=== PATIENT | female | born 2000 | race American Indian/Alaskan Native ===

== ENCOUNTER 2021-01-28 12:53 | Outpatient (CLI) | payer OTHER ==
[2021-01-28 16:08] LABS: Bilirubin,Urine NEG (Negative); Blood,Urine NEG (Negative); Color,Urine Yellow (Yellow); Mucus,Urine FEW /HPF; Protein,Urine <15 mg/dL mg/dL (Negative); RBC,Urine < 1.0 /HPF (0.0-6.0)
[2021-01-28] MEDS ORDERED: ACETAMINOPHEN 325 MG TAB PO ONE (16:24)
[2021-01-28] MEDS ORDERED: ACETAMINOPHEN 500 MG TAB PO ONE (17:00)
== END 2021-01-28 16:50 | disposition home or self-care (01) ==
LOC: TRG 12:53 → APU 12:53 → TRG 16:50
PROVIDERS: ATTEND Obstetrics & Gynecology
DX: Z34.92 Encounter for supervision of normal pregnancy, unspecified, second trimester (principal); Z3A.23 23 weeks gestation of pregnancy
CPT/HCPCS: 59025; 81001

== ENCOUNTER 2021-05-12 06:19 | Outpatient (CLI) | payer OTHER ==
[2021-05-12 06:38] VITALS: BP 125/86
== END 2021-05-12 08:37 | disposition home or self-care (01) ==
LOC: TRG 06:19 → APU 06:20 → TRG 08:37
PROVIDERS: ATTEND Obstetrics & Gynecology
DX: Z34.93 Encounter for supervision of normal pregnancy, unspecified, third trimester (principal); Z3A.38 38 weeks gestation of pregnancy
CPT/HCPCS: 59025; Q0177

== ENCOUNTER 2021-05-13 11:33 | Inpatient (IN) | payer OTHER ==
--- NOTE | 2021-05-13 13:46 | History and Physical Report ---
History of Present Illness Date of examination: 05/13/21 Date of admission: 05/13/2021 Chief complaint: "I was sent here from the office" History of present illness: EDC Confirmation: 05/24/2021 Past History : 2 Term Births: 0 Premature Births: 0 Living Children: 0 Para: 0 Mult. Births: 0 Prev : 0 Aborta: 1 Elect. Ab: 0 Spont. Ab: 1 Ectopics: 0 # 1 Delivery date: 06/2020 Weeks Gestation: 5 Delivery type: SAB [place] [facility] [place]: No D&C Past Medical History: Negative Past Medical History Past Surgical History: Negative Past Surgical History Family History Summary: Other Family Member - Has No Family History of Ovarvian Cancer - Entered On: 12/08/2020 Other Family Member - Has No Family History of Colon Cancer - Entered On: 12/08/2020 Other Family Member - Has No Family History of Breast Cancer - Entered On: 12/08/2020 Social History: Marital Status: Single Children: 0 Occupation: Visual Associate at [employer] Smoking History: Patient has never smoked. Risk Factors: Smoked Tobacco Use: Never smoker Smokeless Tobacco Use: Never Passive smoke exposure: no Drug use: no HIV high-risk behavior: no Caffeine use: 0 drinks per day Alcohol use: no Exercise: yes Times per week: 3 Seatbelt use: 100 % Dietary Counseling: pn yes Past Medical History Surgery (Non-cold reduction roller): Negative Past Surgical History Abnormal PAP: negative Uterine Anomaly: negative Social Hx: Marital Status: Single Children: 0 Occupation: [employer] at [employer] Smoking History: Patient has never smoked. Infection History Hx of STD: none HIV Risk Eval: no Hepatitis B Risk Eval: low risk Personal hx. of genital herpes: no Genetic History Congenital Heart Defect: Mom: no Dad: no Owen Disease: Mom: no Dad: no Thalassemia Mom: no Dad: no Neural Tube Defect Mom: no Dad: no Down's Syndrome Mom: no Dad: no Loc-Sachs Mom: no Dad: no Sickle Cell Disease/Trait Mom: no Dad: no Hemophilia Mom: no Dad: no Muscular Dystrophy Mom: no Dad: no Cystic Fibrosis Mom: no Dad: no Ravin Chorea Mom: no Dad: no Mental Retardation Mom: no Dad: no Fragile X Mom: no Dad: no Other Genetic/Chromosomal Disorder Mom: no Dad: no Child w/other defect Mom: no Dad: no Active Medications: None Current Allergies: No known allergies Past History Past Medical History: no pertinent history (see HPI) Past Surgical History: no surgical history (SEE HPI) ASSOCIATE ART DIRECTOR History: chlamydia Family/Genetic History: none (SEE HPI) Social history: no significant social history (SEE HPI) - Obstetrical History Expected Date of Delivery: 05/24/21 Actual Gestation: 38 Week(s) 3 Day(s) : 2 Para: 0 Hx # Term Pregnancies: 0 Number of Pregnancies: 0 Spontaneous Abortions: 1 Induced : 0 Number of Living Children: 0 Medications and Allergies Allergies Allergy/AdvReac Type Severity Reaction Status Date / Time No Known Allergies Allergy Unverified 01/28/21 15:06 Review of Systems All systems: negative - Vital Signs Vital signs: Vital Signs Pulse BP 88 121/58 05/13/21 11:59 05/13/21 11:59 Temp Pulse Resp BP Pulse Ox 98.2 F 79 16 117/51 99 05/13/21 12:03 05/13/21 13:35 05/13/21 12:03 05/13/21 13:16 05/13/21 13:35 - Physical Exam Breasts: Positive: deferred Cardiovascular: Regular rate Lungs: Positive: Normal air movement Abdomen: Positive: normal appearance, soft Genitourinary (Female): Positive: normal external genitalia, normal perenium Vulva: both: normal Vagina: Positive: normal moisture Uterus: Positive: normal size, normal contour Anus/Rectum: Positive: normal perianal skin - Obstetrical FHR: auscultation normal, category 1 Uterine Contraction Monitor Mode: External Cervical Dilatation: 0 Cervical Effacement Percentage: 0 station: -3 Uterine Contraction Pattern: Irregular Uterine Tone Measurement Phase: Resting Results Result Diagrams: 05/13/21 13:02 All other labs normal. Tests: (1) Ct, Ng, Trich vag by MERLIN ([id number]) Order Note: Clinical Information: SRC:VR SRC:UR Chlamydia by MERLIN [A] Positive Negative *1 Gonococcus by MERLIN Negative Negative *2 Trich vag by MERLIN Negative Negative *3 Tests: (2) Strep Gp B MERLIN ([id number]) ! Strep Gp B MERLIN Negative Negative *4 Tests: (1) Profile I ([id number]) HBsAg Screen Negative Negative *1 RPR Non Reactive Non Reactive *2 Rubella Antibodies, IgG 10.20 index Immune >0.99 *3 Non-immune <0.90 Equivocal 0.90 - 0.99 Immune >0.99 ABO Grouping B *4 Rh Factor Positive *5 Please note: Prior records for this patient's ABO / Rh type are not available for additional verification. Antibody Screen Negative Negative *6 WBC [H] 16.4 x10E3/uL 3.4-10.8 *7 RBC 4.20 x10E6/uL 3.77-5.28 *8 Hemoglobin 13.2 g/dL 11.1-15.9 *9 Hematocrit 39.5 % 34.0-46.6 *10 MCV 94 fL 79-97 *11 MCH 31.4 pg 26.6-33.0 *12 MCHC 33.4 g/dL 31.5-35.7 *13 RDW 12.2 % 11.7-15.4 *14 Platelets 231 x10E3/uL 150-450 *15 Neutrophils 78 % Not Estab. *16 Lymphs 15 % Not Estab. *17 Monocytes 5 % Not Estab. *18 Eos 1 % Not Estab. *19 Basos 0 % Not Estab. *20 ! Immature Cells <No Reported Value> *21 Neutrophils (Absolute) [H] 13.0 x10E3/uL 1.4-7.0 *22 Lymphs (Absolute) 2.4 x10E3/uL 0.7-3.1 *23 Monocytes(Absolute) 0.8 x10E3/uL 0.1-0.9 *24 Eos (Absolute) 0.1 x10E3/uL 0.0-0.4 *25 Baso (Absolute) 0.1 x10E3/uL 0.0-0.2 *26 ! Immature Granulocytes 1 % Not Estab. *27 ! Immature Grans (Abs) 0.1 x10E3/uL 0.0-0.1 *28 ! NRBC <No Reported Value> *29 Hematology Comments: <No Reported Value> *30 Tests: (2) AFP Tetra ([id number]) ! Results Report *31 ! Test Results: *Screen Negative* *32 ! Gest. Age on Collection Date 20.0 WEEKS *33 ! Gestat. Age Based On CARLOS *34 05/24/2021 ! [age]OS [age] *35 ! Race Black *36 ! Weight 196 lbs *37 ! Insulin Dep Diabetes No *38 ! Multiple Gestation No *39 ! AFP Value 76.3 ng/mL *40 ! AFP MoM 1.41 *41 ! hCG Value 82055 mIU/mL *42 ! hCG MoM 3.12 *43 ! uE3 Value 3.09 ng/mL *44 ! uE3 MoM 1.49 *45 ! KARINA Value 157.39 pg/mL *46 ! KARINA MoM 1.01 *47 ! OSBR Risk 1 IN 7002 *48 ! DSR (Second Trimester) 1 [place] [address] *49 ! DSR (By Age) 1 IN 1121 *50 ! T18 Risk Not increased *51 ! T18 (By Age) 1:4368 *52 ! Interpretation NL42 *53 Interpretation: Screen Negative This result is screen negative for OSB, Down Syndrome and Trisomy 18. The AFP MoM and patient specific risks calculated are based on the gestational age and the clinical information provided. This test can identify up to 80% of open neural tube defects. Closed neural tube defects and some open defects may not be detected by this test. The combination of maternal age, AFP, hCG, uE3, and KARINA identifies 75-80% of Down Syndrome. The combination of maternal age, AFP, hCG and uE3 identifies 60% of Trisomy 18 pregnancies. The [place] [employer] recommends amniocentesis be offered to women age 35 and older. Recalculations are not recommended when gestational dating by LMP and ultrasound are within 10 days. ! Comments: [facility] *54 Zohra Pineda, Ph.D., [facility] Director References: Available Upon Request. Multiples Of Median Cutoffs Abbreviation Definitions For AFP Elevations IDD- Insulin Dep Diabetes Reyes 2.5 Black 2.8 OSBR- Open Spina Bifida IDD 2.0 Twins 4.5 Risk DSR Cutoff 1:270 DSR- Down Syndrome Risk T18 Cutoff 1:100 T18- Trisomy 18 Down Syndrome and Trisomy 18 screening are considered Investigational For further inquiries contact [facility] at [phone]. Tests: (3) HB Solu + Rflx Fra ([id number]) Hemoglobin (Hgb) Solubility Negative Negative *55 Tests: (4) HIV Ag/Ab with Reflex ([id number]) HIV Screen 4th Generation wRfx Non Reactive Non Reactive *56 Tests: (5) HCV Antibody reflex to MERLIN ([id number]) ! HCV Ab <0.1 s/co ratio 0.0-0.9 *57 Tests: (6) Interpretation: ([id number]) ! Interpretation: SPRCS *58 Negative Not infected with HCV, unless recent infection is suspected or other evidence exists to indicate HCV infection. Assessment and Plan Pt sent from [facility] for direct admission and IOL for AMBER 4cm today. SVE with cervix closed and posterior. IOL options d/w pt and family member. Pt agrees to cervidil ripening. POC reviewed, RN notified and Orders placed in EMR. Anticipat e - Patient Problems (1) Chlamydia infection affecting Current Visit: Yes Status: Acute Plan to address problem: Pt reports treatment recv'd on 05/07/21 and denies having sexual intercourse since. Notify NICU (2) Oligohydramnios Current Visit: Yes Status: Acute Plan to address problem: continous monitoring EFM and toco (3) 38 weeks gestation of Current Visit: Yes Status: Acute (4) Encounter for induction of labor Current Visit: Yes Status: Acute Plan to address problem: continue with induction and per protocol (5) Umbilical cord, marginal insertion Current Visit: Yes Status: Acute
[2021-05-13] MEDS ORDERED: LACTATED RINGERS 1,000 ML IV SCH ×2 (14:15→17:15)
[2021-05-13 14:20] LABS: Basophils # (Auto) 0.1 K/mm3 (0.0-0.1); Basophils % (Auto) 0.5 % (0.0-1.8); Eosinophils # (Auto) 0.1 K/mm3 (0.0-0.4); Eosinophils % (Auto) 0.4 % (0.0-4.3); Hematocrit 34.7 % (30.3-42.9); Hemoglobin 11.9 gm/dl (10.1-14.3); Lymphocytes % (Auto) 12.8 % (13.4-35.0); Mean Corpuscular HGB Conc 34 % (30-34); Mean Corpuscular Volume 88 fl (79-97); Monocytes % (Auto) 6.7 % (0.0-7.3); Platelet Count 232 K/mm3 (140-440); Red Blood Count 3.94 M/mm3 (3.65-5.03)
[2021-05-13] MEDS ORDERED: CARBOPROST TROMETHAMINE 250 MCG/1 ML INJ IM PRN (17:06)
[2021-05-13] MEDS ORDERED: ePHEDrine SULFATE 50 MG/1 ML INJ IV PRN (17:06)
[2021-05-13] MEDS ORDERED: ACETAMINOPHEN 325 MG TAB PO PRN (17:06)
[2021-05-13] MEDS ORDERED: TERBUTALINE 1 MG/1 ML INJ SUB-Q PRN (17:06)
[2021-05-13] MEDS ORDERED: LIDOCAINE (2%) 20 MG/1 ML VIAL 20 ML MDV INFILTRATI ONE (17:06)
[2021-05-13] MEDS ORDERED: DINOPROSTONE 10 MG VAG SUPP VG NR (17:06)
[2021-05-13] MEDS ORDERED: LOPERAMIDE 2 MG CAP PO PRN (17:06)
[2021-05-13] MEDS ORDERED: OXYTOCIN 10 UNIT/1 ML INJ IM PRN (17:06)
[2021-05-13] MEDS ORDERED: ONDANSETRON 4 MG/2 ML INJ IV PRN (17:06)
[2021-05-13] MEDS ORDERED: NALOXONE 0.4 MG/1 ML INJ IV PRN (17:06)
[2021-05-13] MEDS ORDERED: miSOPROStol 200 MCG TAB PR PRN (17:06)
[2021-05-13] MEDS ORDERED: MINERAL OIL 30 ML ORAL LIQD PO PRN (17:06)
[2021-05-13] MEDS ORDERED: METHYLERGONOVINE MALEATE 0.2 MG/ML VIAL IM PRN (17:06)
[2021-05-13] MEDS ORDERED: OXYTOCIN DRIP 30 UNITS/500 ML BAG IV SCH (18:00)
[2021-05-13] MEDS ORDERED: ZOLPIDEM 5 MG TAB PO PRN (21:29)
[2021-05-14] MEDS: NalbUPHINE 10 MG/1 ML INJ IV PRN ×4 (03:08→18:09)
--- NOTE | 2021-05-14 08:36 | Progress Note ---
Assessment and Plan A: 21 y.o. @ 38.4 wks, IOL d/t Oligohydraminos. Cervical exam /-3. P: Allow patient to eat breakfast. Will start Pitocin per protocol. Subjective - Subjective Date of service: 05/14/21 (Pt sleeping. ) Principal diagnosis: IUP @ 38.4 wks, IOL d/t oligohydraminos Patient reports: movement normal, no new complaints, no loss of fluid, no vaginal bleeding, no contractions Objective - Vital Signs Vital Signs: Vital Signs - 12hr 05/13/21 05/13/21 05/13/21 20:36 20:41 20:47 Temperature Pulse Rate 83 89 75 Blood Pressure O2 Sat by Pulse 100 100 100 Oximetry 05/13/21 05/13/21 05/13/21 20:52 20:57 21:02 Temperature Pulse Rate 70 78 79 Blood Pressure O2 Sat by Pulse 100 100 100 Oximetry 05/13/21 05/13/21 05/13/21 21:55 22:01 22:06 Temperature Pulse Rate 86 74 79 Blood Pressure O2 Sat by Pulse 99 100 100 Oximetry 05/13/21 05/13/21 05/13/21 22:11 22:16 22:21 Temperature Pulse Rate 78 78 78 Blood Pressure O2 Sat by Pulse 99 99 99 Oximetry 05/13/21 05/13/21 05/13/21 22:26 22:31 22:36 Temperature Pulse Rate 79 79 82 Blood Pressure O2 Sat by Pulse 100 99 99 Oximetry 05/13/21 05/13/21 05/13/21 22:41 22:46 22:51 Temperature Pulse Rate 88 83 82 Blood Pressure O2 Sat by Pulse 98 98 99 Oximetry 05/13/21 05/13/21 05/13/21 22:56 23:01 23:06 Temperature 98.0 F Pulse Rate 85 87 89 Blood Pressure 104/52 O2 Sat by Pulse 100 98 99 Oximetry 05/13/21 05/13/21 05/13/21 23:11 23:16 23:21 Temperature Pulse Rate 79 85 86 Blood Pressure O2 Sat by Pulse 98 98 98 Oximetry 05/13/21 05/13/21 05/13/21 23:26 23:31 23:36 Temperature Pulse Rate 90 85 84 Blood Pressure O2 Sat by Pulse 98 98 98 Oximetry 05/13/21 05/13/2105/13/21 23:41 23:46 23:51 Temperature Pulse Rate 89 95 H 86 Blood Pressure O2 Sat by Pulse 98 99 98 Oximetry 05/13/21 05/14/21 05/14/21 23:56 00:01 00:06 Temperature Pulse Rate 88 80 83 Blood Pressure O2 Sat by Pulse 99 98 98 Oximetry 05/14/21 05/14/21 05/14/21 00:11 00:16 00:21 Temperature Pulse Rate 81 86 92 H Blood Pressure O2 Sat by Pulse 99 98 99 Oximetry 05/14/21 05/14/21 05/14/21 00:26 00:31 00:36 Temperature Pulse Rate 82 83 82 Blood Pressure O2 Sat by Pulse 98 98 98 Oximetry 05/14/21 05/14/21 05/14/21 00:41 00:46 00:51 Temperature Pulse Rate 83 87 88 Blood Pressure O2 Sat by Pulse 98 98 98 Oximetry 05/14/21 05/14/21 05/14/21 00:56 01:01 01:06 Temperature Pulse Rate 82 94 H 79 Blood Pressure O2 Sat by Pulse 98 98 99 Oximetry 05/14/21 05/14/21 05/14/21 01:11 01:16 01:21 Temperature Pulse Rate 84 86 83 Blood Pressure O2 Sat by Pulse 98 99 99 Oximetry 05/14/21 05/14/21 05/14/21 01:26 01:31 01:54 Temperature Pulse Rate 84 86 80 Blood Pressure O2 Sat by Pulse 99 99 100 Oximetry 05/14/21 05/14/21 05/14/21 01:59 02:04 02:09 Temperature Pulse Rate 83 101 H 99 H Blood Pressure O2 Sat by Pulse 99 100 98 Oximetry 05/14/21 05/14/21 05/14/21 02:14 02:19 02:24 Temperature Pulse Rate 95 H 97 H 98 H Blood Pressure O2 Sat by Pulse 99 99 99 Oximetry 05/14/21 05/14/21 05/14/21 02:29 02:41 02:46 Temperature Pulse Rate 87 86 89 Blood Pressure O2 Sat by Pulse 99 98 98 Oximetry 05/14/21 05/14/21 05/14/21 02:51 02:56 03:01 Temperature Pulse Rate 88 94 H 87 Blood Pressure O2 Sat by Pulse 98 98 97 Oximetry 08/03/2905/14/21 05/14/21 03:03 03:05 03:06 Temperature 98.1 F Pulse Rate 85 87 88 Blood Pressure 102/48 O2 Sat by Pulse 91 97 Oximetry 05/14/21 05/14/21 05/14/21 03:11 03:14 03:16 Temperature Pulse Rate 87 88 80 Blood Pressure O2 Sat by Pulse 96 94 96 Oximetry 05/14/21 05/14/21 05/14/21 03:21 03:26 03:27 Temperature Pulse Rate 82 89 87 Blood Pressure O2 Sat by Pulse 95 95 93 Oximetry 05/14/21 05/14/21 05/14/21 03:31 03:36 03:39 Temperature Pulse Rate 80 79 82 Blood Pressure O2 Sat by Pulse 95 97 92 Oximetry 05/14/21 05/14/21 05/14/21 03:41 03:46 03:51 Temperature Pulse Rate 83 80 91 H Blood Pressure O2 Sat by Pulse 94 98 98 Oximetry 05/14/21 05/14/21 05/14/21 03:56 04:01 04:06 Temperature Pulse Rate 78 83 90 Blood Pressure O2 Sat by Pulse 98 97 97 Oximetry 05/14/21 05/14/21 05/14/21 04:11 04:16 04:23 Temperature Pulse Rate 84 85 83 Blood Pressure O2 Sat by Pulse 95 81 L 96 Oximetry 05/14/21 05/14/21 05/14/21 04:28 04:33 04:38 Temperature Pulse Rate 83 80 84 Blood Pressure O2 Sat by Pulse 93 94 92 Oximetry 05/14/21 05/14/21 05/14/21 04:43 04:48 04:53 Temperature Pulse Rate 76 81 82 Blood Pressure O2 Sat by Pulse 97 98 98 Oximetry 05/14/21 05/14/21 05/14/21 04:58 05:01 05:03 Temperature Pulse Rate 81 79 85 Blood Pressure O2 Sat by Pulse 97 88 86 Oximetry 05/14/21 05/14/21 05/14/21 05:06 05:08 05:13 Temperature Pulse Rate 82 84 Blood Pressure O2 Sat by Pulse 89 86 95 Oximetry 05/14/21 05/14/21 05/14/21 05:18 05:20 05:34 Temperature Pulse Rate 81 80 Blood Pressure O2 Sat by Pulse 96 90 73 L Oximetry 05/14/21 05/14/2105/14/21 05:35 05:40 05:45 Temperature Pulse Rate 82 98 H 84 Blood Pressure O2 Sat by Pulse 87 100 99 Oximetry 05/14/21 05/14/21 05/14/21 05:50 05:55 06:00 Temperature Pulse Rate 89 86 91 H Blood Pressure O2 Sat by Pulse 99 99 98 Oximetry 05/14/21 05/14/21 05/14/21 06:05 06:10 06:19 Temperature Pulse Rate 85 104 H 116 H Blood Pressure O2 Sat by Pulse 98 97 79 L Oximetry 05/14/21 05/14/21 05/14/21 06:20 06:25 06:30 Temperature Pulse Rate 56 L 80 82 Blood Pressure O2 Sat by Pulse 87 98 99 Oximetry 05/14/21 05/14/21 05/14/21 06:35 06:40 06:45 Temperature Pulse Rate 79 86 84 Blood Pressure O2 Sat by Pulse 98 100 98 Oximetry 05/14/21 05/14/21 05/14/21 06:50 06:55 07:00 Temperature Pulse Rate 87 92 H 81 Blood Pressure O2 Sat by Pulse 99 99 100 Oximetry 05/14/21 05/14/21 05/14/21 07:05 07:10 07:15 Temperature Pulse Rate 88 84 79 Blood Pressure O2 Sat by Pulse 99 100 98 Oximetry 05/14/21 05/14/21 05/14/21 07:20 07:25 07:30 Temperature Pulse Rate 80 94 H 83 Blood Pressure O2 Sat by Pulse 98 98 98 Oximetry 05/14/21 05/14/21 05/14/21 07:35 07:40 07:45 Temperature Pulse Rate 92 H 84 82 Blood Pressure O2 Sat by Pulse 98 100 99 Oximetry 05/14/21 05/14/21 05/14/21 07:50 07:55 08:00 Temperature Pulse Rate 78 78 85 Blood Pressure O2 Sat by Pulse 99 98 99 Oximetry 05/14/21 05/14/21 05/14/21 08:05 08:10 08:15 Temperature Pulse Rate 79 82 81 Blood Pressure O2 Sat by Pulse 99 99 98 Oximetry 05/14/21 05/14/21 05/14/21 08:20 08:25 08:30 Temperature Pulse Rate 93 H 83 97 H Blood Pressure O2 Sat by Pulse 98 98 97 Oximetry - Exam Narrative Exam: Discussed plan of care with patient. Will allow her to eat breakfast and then start Pitocin. If her cervical exam remains the same @ 1700, will re-insert Cervidil for further cervical ripening. Pt aware of plan and agrees at this time. Breasts: deferred Cardiovascular: Regular rate Lungs: Normal air movement Abdomen: Present: normal appearance Vulva: both: normal Uterus: Present: normal FHR: category 1 Uterine Contraction Monitor Mode: External Cervical Dilatation: 1 (Posterior, medium) Cervical Effacement Percentage: 50 station: -3 Uterine Contraction Pattern: Irregular Uterine Tone Measurement Phase: Resting Uterine Contraction Intensity: Mild Extremities: normal - Labs Labs: Abnormal Labs 05/13/21 13:02 WBC 15.5 H Lymph % (Auto) 12.8 L [place] # (Auto) 1.0 H Seg Neutrophils % 79.6 H Seg Neutrophils # 12.4 H Laboratory Results - last 24 hr 05/13/21 05/13/21 05/13/21 13:02 13:02 13:02 WBC 15.5 H RBC 3.94 Hgb 11.9 Hct 34.7 MCV 88 MCH 30 MCHC 34 RDW 15.0 Plt Count 232 Lymph % (Auto) 12.8 L [place] % (Auto) 6.7 Eos % (Auto) 0.4 Baso % (Auto) 0.5 Lymph # (Auto) 2.0 [place] # (Auto) 1.0 H Eos # (Auto) 0.1 Baso # (Auto) 0.1 Seg Neutrophils % 79.6 H Seg Neutrophils # 12.4 H Syphilis IgG Antibody Nonreactive Blood Type B POSITIVE Antibody Screen Negative
--- NOTE | 2021-05-14 17:37 | Progress Note ---
Assessment and Plan A: 21 y.o. @ 38.4 wks, IOL for Oligohydramnios. Cervical exam /-2. P: Continue with Pitocin per protocol. Initiate IV bolus for epidural placement. Anticipate . Subjective - Subjective Date of service: 05/14/21 (Pt requesting epidural placement. ) Principal diagnosis: IUP @ 38.4 wks, IOL d/t oligohydraminos Patient reports: movement normal, no new complaints, no loss of fluid, no vaginal bleeding, no contractions Objective - Vital Signs Vital Signs: Vital Signs - 12hr 05/14/21 05/14/21 05/14/21 05:40 05:45 05:50 Pulse Rate 98 H 84 89 O2 Sat by Pulse 100 99 99 Oximetry O2 Sat by Pulse Oximetry [ Bilateral] 05/14/21 05/14/21 05/14/21 05:55 06:00 06:05 Pulse Rate 86 91 H 85 O2 Sat by Pulse 99 98 98 Oximetry O2 Sat by Pulse Oximetry [ Bilateral] 05/14/21 05/14/21 05/14/21 06:10 06:19 06:20 Pulse Rate 104 H 116 H 56 L O2 Sat by Pulse 97 79 L 87 Oximetry O2 Sat by Pulse Oximetry [ Bilateral] 05/14/21 05/14/21 05/14/21 06:25 06:30 06:35 Pulse Rate 80 82 79 O2 Sat by Pulse 98 99 98 Oximetry O2 Sat by Pulse Oximetry [ Bilateral] 05/14/21 05/14/21 05/14/21 06:40 06:45 06:50 Pulse Rate 86 84 87 O2 Sat by Pulse 100 98 99 Oximetry O2 Sat by Pulse Oximetry [ Bilateral] 05/14/21 05/14/21 05/14/21 06:55 07:00 07:05 Pulse Rate 92 H 81 88 O2 Sat by Pulse 99 100 99 Oximetry O2 Sat by Pulse 100 Oximetry [ Bilateral] 05/14/21 05/14/21 05/14/21 07:10 07:15 07:20 Pulse Rate 84 79 80 O2 Sat by Pulse 100 98 98 Oximetry O2 Sat by Pulse Oximetry [ Bilateral] 05/14/21 05/14/21 05/14/21 07:25 07:30 07:35 Pulse Rate 94 H 83 92 H O2 Sat by Pulse 98 98 98 Oximetry O2 Sat by Pulse Oximetry [ Bilateral] 05/14/21 05/14/21 05/14/21 07:40 07:45 07:50 Pulse Rate 84 82 78 O2 Sat by Pulse 100 99 99 Oximetry O2 Sat by Pulse Oximetry [ Bilateral] 05/14/21 05/14/21 05/14/21 07:55 08:00 08:05 Pulse Rate 78 85 79 O2 Sat by Pulse 98 99 99 Oximetry O2 Sat by Pulse Oximetry [ Bilateral] 05/14/21 05/14/21 05/14/21 08:10 08:15 08:20 Pulse Rate 82 81 93 H O2 Sat by Pulse 99 98 98 Oximetry O2 Sat by Pulse Oximetry [ Bilateral] 05/14/21 05/14/21 05/14/21 08:25 08:30 08:35 Pulse Rate 83 97 H 80 O2 Sat by Pulse 98 97 99 Oximetry O2 Sat by Pulse Oximetry [ Bilateral] 05/14/21 05/14/21 05/14/21 08:40 08:45 08:50 Pulse Rate 82 83 80 O2 Sat by Pulse 98 99 99 Oximetry O2 Sat by Pulse Oximetry [ Bilateral] 05/14/21 08:55 Pulse Rate 79 O2 Sat by Pulse 99 Oximetry O2 Sat by Pulse Oximetry [ Bilateral] - Exam Breasts: deferred Cardiovascular: Regular rate Lungs: Normal air movement Abdomen: Present: normal appearance, soft Vulva: both: normal Uterus: Present: normal FHR: category 1 Uterine Contraction Monitor Mode: External Cervical Dilatation: 5 (BBOW felt during exam.) Cervical Effacement Percentage: 80 station: -2 Uterine Contraction Pattern: Regular Uterine Contraction Intensity: Moderate - Labs Labs: Abnormal Labs 05/13/21 13:02 WBC 15.5 H Lymph % (Auto) 12.8 L [place] # (Auto) 1.0 H Seg Neutrophils % 79.6 H Seg Neutrophils # 12.4 H Laboratory Results - last 24 hr 05/13/21 05/14/21 13:02 Unknown Coronavirus (PCR) Negative Antibody Screen Negative
[2021-05-14] MEDS ORDERED: NALOXONE 2 MG/2 ML INJ IV PRN (19:33)
[2021-05-14] MEDS ORDERED: ePHEDrine SULFATE 50 MG/1 ML INJ IV PRN (19:33)
--- NOTE | 2021-05-14 19:34 | Anesthesia Consultation ---
Anesthesia Consult and Med Hx Date of service: 05/14/21 - Airway Anesthetic Teeth Evaluation: Good ROM Head & Neck: Adequate Mental/Hyoid Distance: Adequate Mallampati Class: Class II Intubation Access Assessment: Probably Good - Pulmonary Exam CTA: Yes - Cardiac Exam Cardiac Exam: RRR - Pre-Operative Health Status ASA Pre-Surgery Classification: ASA3 Proposed Anesthetic Plan: Epidural - Pulmonary Hx Asthma: No COPD: No Hx Pneumonia: No - Cardiovascular System Hx Hypertension: No - Central Nervous System Hx Seizures: No Hx Psychiatric Problems: No - Endocrine Hx Renal Disease: No Hx End Stage Renal Disease: No Hx Hypothyroidism: No Hx Hyperthyroidism: No - Hematic Hx Anemia: No Hx Sickle Cell Disease: No - Other Systems Hx Alcohol Use: No Hx Obesity: Yes
[2021-05-14] MEDS ORDERED: fentaNYL-BUPIV 2 MCG/ML-0.125% 200 MCG/100 ML BAG EPIDURAL SCH (20:00)
--- NOTE | 2021-05-14 20:09 | Progress Note ---
Labor Epidural - Labor Epidural Start Time: 19:46 Stop Time: 19:59 Performed by:: GRIFFIN SESAY Procedure: Patient is requesting epidural for labor pain. H&P, and labs reviewed. Procedure explained, questions answered, consent obtained. Patient in sitting position with blood pressure cuff and pulse ox on and working. Timeout performed immediately before start of procedure. Sterile chlorahexadine 0.5% prep/drape. 3 mL 1% lidocaine skin wheal at L[3]-L[4]. 18-gauge [place] [employer] epidural needle advanced to [id number] with saline at 9 cm. Epidural dexmedetomidine [30] mcg administered. Unable to thread catheter, catheter and needle removed together. 3 ml lidocaine administered L2-3, hustead advanced to JUDD to saline at 9 cm. Epidural catheter advanced to 15 cm, negative aspiration for blood and csf, negative test dose 3 ml 1.5% lidocaine with epinephrine. Sterile steri- strips and tegaderm applied, followed by tape reinforcement. Patient tolerated procedure well.
--- NOTE | 2021-05-14 22:55 | Progress Note ---
Assessment and Plan A: 21 y.o. @ term in active labor. Cervical exam 100/ +1. P: Will allow patient to labor down. Anticipate . Subjective - Subjective Date of service: 05/14/21 (AROM clear fluid) Principal diagnosis: IUP @ 38.4 wks, IOL d/t oligohydraminos Patient reports: movement normal, no new complaints, no loss of fluid, no vaginal bleeding, no contractions Objective - Vital Signs Vital Signs: Vital Signs - 12hr 05/14/21 05/14/21 05/14/21 19:09 19:38 19:43 Pulse Rate 92 H 88 Blood Pressure O2 Sat by Pulse 42 L 98 100 Oximetry 05/14/21 05/14/21 05/14/21 19:48 19:53 19:58 Pulse Rate 83 87 83 Blood Pressure O2 Sat by Pulse 99 98 100 Oximetry 05/14/21 05/14/21 05/14/21 20:03 20:08 20:09 Pulse Rate 86 84 84 Blood Pressure 116/55 O2 Sat by Pulse 99 99 Oximetry 05/14/21 05/14/21 05/14/21 20:12 20:13 20:18 Pulse Rate 85 81 72 Blood Pressure 109/55 106/57 O2 Sat by Pulse 98 99 Oximetry 05/14/21 05/14/21 05/14/21 20:22 20:23 20:28 Pulse Rate 78 77 79 Blood Pressure 112/57 111/65 O2 Sat by Pulse 99 100 Oximetry 05/14/21 05/14/21 05/14/21 20:33 20:38 20:43 Pulse Rate 78 73 79 Blood Pressure O2 Sat by Pulse 100 100 100 Oximetry 05/14/21 05/14/21 05/14/21 20:48 20:53 20:58 Pulse Rate 74 71 84 Blood Pressure O2 Sat by Pulse 99 100 99 Oximetry 05/14/21 05/14/21 05/14/21 21:00 21:03 21:08 Pulse Rate 75 81 79 Blood Pressure 113/66 O2 Sat by Pulse 97 98 Oximetry 05/14/21 05/14/21 05/14/21 21:13 21:18 21:23 Pulse Rate 74 75 76 Blood Pressure O2 Sat by Pulse 99 100 100 Oximetry 05/14/21 05/14/21 05/14/21 21:28 21:30 21:33 Pulse Rate 84 82 91 H Blood Pressure 110/63 O2 Sat by Pulse 99 94 98 Oximetry 05/14/21 05/14/21 05/14/21 21:38 21:43 21:48 Pulse Rate 77 67 72 Blood Pressure O2 Sat by Pulse 100 100 100 Oximetry 05/14/21 05/14/21 05/14/21 21:53 21:58 21:59 Pulse Rate 82 66 75 Blood Pressure 121/60 O2 Sat by Pulse 100 100 Oximetry 05/14/21 05/14/21 05/14/21 22:03 22:08 22:13 Pulse Rate 74 75 75 Blood Pressure O2 Sat by Pulse 100 99 100 Oximetry 05/14/21 05/14/21 05/14/21 22:18 22:23 22:28 Pulse Rate 82 70 75 Blood Pressure O2 Sat by Pulse 100 100 100 Oximetry 05/14/21 05/14/21 05/14/21 22:30 22:33 22:38 Pulse Rate 74 83 85 Blood Pressure 109/60 O2 Sat by Pulse 100 100 Oximetry 05/14/21 05/14/21 22:43 22:48 Pulse Rate 91 H 94 H Blood Pressure O2 Sat by Pulse 100 100 Oximetry - Exam Narrative Exam: Pt feeling pressure. Exam revealed 10/100/+1 station. BBOW at the introitus. AROM clear fluid. Will allow patient to labor down for about 30 minutes and then do some pushing. Breasts: deferred Cardiovascular: Regular rate Lungs: Normal air movement Abdomen: Present: normal appearance, soft Vulva: both: normal Uterus: Present: normal FHR: category 1 Uterine Contraction Monitor Mode: External Cervical Dilatation: 10 (AROM clear fluid) Cervical Effacement Percentage: 100 station: +1 Uterine Contraction Pattern: Regular Uterine Tone Measurement Phase: Resting Uterine Contraction Intensity: Moderate - Labs Labs: Abnormal Labs 05/13/21 13:02 WBC 15.5 H Lymph % (Auto) 12.8 L Howell # (Auto) 1.0 H Seg Neutrophils % 79.6 H Seg Neutrophils # 12.4 H Laboratory Results - last 24 hr 05/14/21 Unknown Coronavirus (PCR) Negative
[2021-05-15] MEDS ORDERED: LANOLIN/ZINC/DIMETHICONE (LANSINOH) 7 GM TP PRN ×2 (00:29)
[2021-05-15] MEDS ORDERED: ACETAMINOPHEN 500 MG TAB PO PRN (00:29)
[2021-05-15] MEDS ORDERED: diphenhydrAMINE 25 MG CAP PO PRN (00:29)
[2021-05-15] MEDS ORDERED: WITCH HAZEL/ GLYCERIN PAD TP PRN (00:29)
[2021-05-15] MEDS ORDERED: ONDANSETRON 4 MG/2 ML INJ IV PRN (00:29)
[2021-05-15] MEDS ORDERED: oxyCODONE /ACETAMINOPHEN 5-325MG TAB PO PRN (00:29)
[2021-05-15] MEDS ORDERED: miSOPROStol 100 MCG TAB PR PRN (00:29)
[2021-05-15] MEDS ORDERED: PROMETHAZINE 25 MG TAB PO PRN (00:29)
[2021-05-15] MEDS ORDERED: BENZOCAINE/MENTHOL 20/0.5% TOP SPRAY 56 GM TP PRN (00:29)
[2021-05-15] MEDS ORDERED: PROMETHAZINE 25 MG RECT SUPP PR PRN (00:29)
[2021-05-15] MEDS ORDERED: MAGNESIUM HYDROXIDE (MOM) ORAL LIQD UDC PO PRN (00:29)
--- NOTE | 2021-05-15 00:37 | Procedure Note ---
OB Delivery Note - Delivery Date of Delivery: 05/14/21 Superintendent Measurement: RIK SWAIN Estimated blood loss: 200cc - Vaginal Delivery presentation: vertex Delivery position: OA Intrapartum events: none Delivery induction: cervidil Delivery augmentation: pitocin Delivery monitor: external FHT, external uterine Route of delivery: Delivery placenta: spontaneous Delivery cord: 3 umbilical vessels Episiotomy: none Delivery laceration: other (Vaginal side wall abrasion noted. No repair needed. ) Anesthesia: epidural Delivery comments: of viable female . Infant to mother's chest for skin to skin. Cord cut and clamped by FOC after cessation of pulse. Spontaneous delivery of placenta, intact, complete, 3 vessels noted. Perineum and vagina inspected, abrasions noted on vaginal side wall that did not need repair. Fundus firm with minimal bleeding noted. EBL 200ml. Apgars 8,9. Instruments and sponges counted with RN X2 and correct X2. and mother in left in the care of RN in stable condition. - Infant A at 1 minute: 8 at 5 minutes: 9 Gender: Female (J'ani weight 6-13.)
[2021-05-15] MEDS ORDERED: OXYTOCIN DRIP 30 UNITS/500 ML BAG IV SCH (01:00)
[2021-05-15] MEDS: IBUPROFEN 800 MG TAB PO SCH ×5 (01:00→23:59)
--- NOTE | 2021-05-15 07:42 | Progress Note ---
Assessment and Plan pt doing well, lochia scant, fundus firm, VSSAF, H&H ordered for today. s/o at bedside - Patient Problems (1) Spontaneous vaginal delivery Current Visit: Yes Status: Acute Plan to address problem: continue pathway encourage breast feeding anticipate d/c home tomorrow Subjective - Subjective Date of service: 05/15/21 Principal diagnosis: day #1 s/p Patient reports: appetite normal, voiding normally, pain well controlled, ambulating normally, no dizzy ambulation, no nauseated : doing well, bottle feeding (breast and bottle feeding) Objective - Vital Signs Latest vital signs: Vital Signs Temp Pulse Resp BP BP Pulse Ox Pulse Ox 05/15/21 07:25 99 05/15/21 06:31 20 05/15/21 05:10 20 05/15/21 04:56 85 115/65 99 05/15/21 04:41 99 05/15/21 02:58 98.4 F 78 104/59 92 05/15/21 01:33 83 116/58 05/15/21 01:19 83 108/55 05/15/21 01:00 91 H 20 116/59 98 05/15/21 00:45 96 H 18 117/57 98 05/15/21 00:34 85 118/62 05/15/21 00:30 97 H 16 129/66 99 05/15/21 00:15 85 16 118/62 197 H 05/15/21 00:03 90 118/59 05/15/21 00:00 98.4 F 90 20 118/59 100 05/14/21 23:59 93 H 124/58 05/14/21 23:53 89 117/57 05/14/21 23:30 96 H 103/54 05/14/21 23:21 64 92 05/14/21 23:15 101 H 71 L 05/14/21 23:13 101 H 100 05/14/21 23:10 33 L 0 L 05/14/21 23:08 107 H 99 05/14/21 23:03 107 H 100 05/14/21 22:59 97 H 129/66 05/14/21 22:58 103 H 100 05/14/21 22:53 110 H 99 05/14/21 22:48 94 H 100 05/14/21 22:43 91 H 100 05/14/21 22:38 85 100 05/14/21 22:33 83 100 05/14/21 22:30 74 109/60 05/14/21 22:28 75 100 05/14/21 22:23 70 100 05/14/21 22:18 82 100 05/14/21 22:13 75 100 05/14/21 22:08 75 99 05/14/21 22:03 74 100 05/14/21 21:59 75 121/60 05/14/21 21:58 66 100 05/14/21 21:53 82 100 05/14/21 21:48 72 100 05/14/21 21:43 67 100 05/14/21 21:38 77 100 05/14/21 21:33 91 H 98 05/14/21 21:30 82 110/63 94 05/14/21 21:28 84 99 05/14/21 21:23 76 100 05/14/21 21:18 75 100 05/14/21 21:13 74 99 05/14/21 21:08 79 98 05/14/21 21:03 81 97 05/14/21 21:00 75 113/66 05/14/21 20:58 84 99 05/14/21 20:53 71 100 05/14/21 20:48 74 99 05/14/21 20:43 79 100 05/14/21 20:38 73 100 05/14/21 20:33 78 100 05/14/21 20:28 79 111/65 100 05/14/21 20:23 77 99 05/14/21 20:22 78 112/57 05/14/21 20:18 72 106/57 99 05/14/21 20:13 81 98 05/14/21 20:12 85 109/55 05/14/21 20:09 84 116/55 05/14/21 20:08 84 99 05/14/21 20:03 86 99 05/14/21 19:58 83 100 05/14/21 19:53 87 98 05/14/21 19:48 83 99 05/14/21 19:43 88 100 05/14/21 19:38 92 H 98 05/14/21 19:09 42 L 05/14/21 08:55 79 99 05/14/21 08:50 80 99 05/14/21 08:45 83 99 05/14/21 08:40 82 98 05/14/21 08:35 80 99 05/14/21 08:30 97 H 97 05/14/21 08:25 83 98 05/14/21 08:20 93 H 98 05/14/21 08:15 81 98 05/14/21 08:10 82 99 05/14/21 08:05 79 99 05/14/21 08:00 85 99 05/14/21 07:55 78 98 05/14/21 07:50 78 99 05/14/21 07:45 82 99 05/14/21 07:40 84 100 Intake and Output 05/14/21 05/14/21 05/15/21 15:59 23:59 07:59 Intake Total 32.300 120 Output Total 600 Balance 32.300 -480 Intake: IV 32.300 PITOCin/NS 30 UNIT/500ML 32.300 30 units In 500 ml @ 40 mls/hr IV TITR DRE Rx#: [id number] Oral 120 Output: Urine 600 Void 600 Other: Total, Intake Amount 120 Total, Output Amount 600 # Voids Void 1 Estimated Blood Loss 150 - Exam Breasts: Present: normal, Cardiovascular: Present: Regular rate Lungs: Present: Normal air movement Abdomen: Present: normal appearance, soft Vulva: both: normal Uterus: Present: normal, firm Extremities: Present: normal
[2021-05-15] MEDS: DOCUSATE SODIUM 100 MG CAP PO SCH ×2 (11:46→21:59)
[2021-05-15] MEDS: PRENATAL VIT27-FE FUMARATE-FOLIC ACID VIT TAB PO SCH (11:46)
[2021-05-15 13:54] LABS: Hematocrit 31.6 % (30.3-42.9); Hemoglobin 10.8 gm/dl (10.1-14.3)
--- NOTE | 2021-05-15 15:50 | Post Anesthesia Evaluation ---
- Post Anesthesia Evaluation Patient Participated: Yes Airway Patent: Yes Stable Respiratory Function: Yes Nausea/Vomiting: No Temp > 96.8F: Yes Pain Manageable: Yes Adequeate Hydration: Yes Anesthesia Complications: No Block Receding Appropriately: Yes
[2021-05-16] MEDS ORDERED: TETANUS,DIPH,PERTUSS(ACELL) VACCINE 0.5 ML SYRINGE IM ONE (06:00)
[2021-05-16] MEDS: IBUPROFEN 800 MG TAB PO SCH ×2 (07:15→12:02)
[2021-05-16] MEDS: DOCUSATE SODIUM 100 MG CAP PO SCH (09:23)
[2021-05-16] MEDS: PRENATAL VIT27-FE FUMARATE-FOLIC ACID VIT TAB PO SCH (09:23)
--- NOTE | 2021-05-16 09:57 | Discharge Summary ---
Providers - Providers Date of Admission: 05/13/21 17:06 Date of discharge: 05/16/21 (desires d/c home) Attending physician: ARLEY GONSALEZ 05/15/21 00:32 Consult to Used Car Sales Supervisor [CONS] Routine Reason For Exam: assistance with , SNS Primary care physician: ARLEY GONSALEZ Hospitalization Reason for admission: induction Condition: Good Pertinent studies: post delivery H&H 10.8/31.6 Procedures: Hospital course: uncomplicated and course Disposition: DC-01 TO HOME OR SELFCARE Final Discharge Diagnosis (Prints w/discharge instructions): Time spent for discharge: 15 - Discharge Diagnoses (1) Spontaneous vaginal delivery Status: Acute Core Measure Documentation - Palliative Care Palliative Care/ Comfort Measures: Not Applicable - Core Measures Any of the following diagnoses?: none Exam - Constitutional Vitals: Temp Pulse Resp BP Pulse Ox 98.5 F 84 18 116/61 98 05/16/21 08:31 05/16/21 08:31 05/16/21 08:31 05/16/21 08:31 05/16/21 08:31 General appearance: Present: no acute distress, well-nourished - EENT Eyes: Present: PERRL ENT: hearing intact, clear oral mucosa - Neck Neck: Present: supple, normal ROM - Respiratory Respiratory effort: normal Respiratory: bilateral: CTA - Cardiovascular Rhythm: regular Heart Sounds: Absent: rub, click - Extremities Extremities: No edema - Abdominal General gastrointestinal: Present: soft, non-tender, non-distended, normal bowel sounds Female genitourinary: Present: normal - Integumentary Integumentary: Present: clear, warm, dry - Musculoskeletal Musculoskeletal: gait normal, strength equal bilaterally - Psychiatric Psychiatric: appropriate mood/affect, intact judgment & insight - Neurologic Neurologic: CNII-XII intact, moves all extremities - Additional findings Additional findings: lochia scant, fundus firm, bottle feeding Plan Activity: no restrictions Diet: regular Follow up with: ARLEY GONSALEZ MD [Primary Care Provider] - 06/07/21 (Congratulations! Please call [phone] to schedule your visit in 4 weeks. Call for any questions or concerns. ) Forms: [facility] Discharge Summary
[2021-05-16 13:10] VITALS: BP 138/77
== END 2021-05-16 14:00 | disposition home or self-care (01) | DRG 774 ==
LOC: TRG 11:33 → APU 11:36 → LD 12:57 → TRG 17:06 → OB 05-15 02:49
PROVIDERS: ADMIT Obstetrics & Gynecology; ATTEND Obstetrics & Gynecology
PROC: 3E0R3BZ Introduction of Anesthetic Agent into Spinal Canal, Percutaneous Approach (ICD-10-PCS; principal; 2021-05-15)
PROC: 00HU33Z Insertion of Infusion Device into Spinal Canal, Percutaneous Approach (ICD-10-PCS; 2021-05-15)
PROC: 3E033VJ Introduction of Other Hormone into Peripheral Vein, Percutaneous Approach (ICD-10-PCS; 2021-05-15)
PROC: 3E0234Z Introduction of Serum, Toxoid and Vaccine into Muscle, Percutaneous Approach (ICD-10-PCS; 2021-05-16)
DX: O41.03X0 Oligohydramnios, third trimester, not applicable or unspecified (principal); Z37.0 Single live birth; O98.32 Other infections with a predominantly sexual mode of transmission complicating childbirth; O69.89X0 Labor and delivery complicated by other cord complications, not applicable or unspecified; Z20.822 Contact with and (suspected) exposure to COVID-19; O99.214 Obesity complicating childbirth; A56.8 Sexually transmitted chlamydial infection of other sites; Z3A.38 38 weeks gestation of pregnancy; Z80.41 Family history of malignant neoplasm of ovary; Z80.0 Family history of malignant neoplasm of digestive organs; Z80.3 Family history of malignant neoplasm of breast; Z23 Encounter for immunization
CPT/HCPCS: 36415; 59025; 59200; 85014; 85018; 85025; 86592; 86850; 86900; 86901; 96360; G0378; J2300; J2590; J7120; Q0177; U0003